=== PATIENT | male | born 1960 | race Caucasian/White ===

== ENCOUNTER 2021-07-11 14:04 | Outpatient (CLI) | payer OTHER | END 2021-07-11 14:05 | disposition home or self-care (01) | LOC: CSHMRI 14:04 | PROVIDERS: ATTEND Nurse Practitioner Adult Health | DX: K86.9 Disease of pancreas, unspecified (principal) | CPT/HCPCS: 74183 ==

== ENCOUNTER 2022-12-30 09:40 | Outpatient (CLI) | payer OTHER ==
[2022-12-30] MEDS ORDERED: Magnevist 469MG/ML 20 ML VIAL ONE (17:03)
== END 2022-12-30 09:41 | disposition home or self-care (01) ==
LOC: CSHMRI 09:40
PROVIDERS: ATTEND Neurological Surgery
DX: M47.22 Other spondylosis with radiculopathy, cervical region (principal); Z98.890 Other specified postprocedural states; M48.02 Spinal stenosis, cervical region
CPT/HCPCS: 72156; 82565; A9579